=== PATIENT | female | born 1970 | race Two or more races ===

== ENCOUNTER 2018-01-15 08:03 | Day surgery (SDC) | payer OTHER ==
[~2018-01-15 08:03] MED LIST: INTESTINEX1 CA1 PO; PROTONIX40 MG PO; ULTRACET PO
== END 2018-01-15 11:55 | disposition home or self-care (01) ==
LOC: AMB-ENDOS 08:03
DX: K64.8 Other hemorrhoids (principal); Z85.038 Personal history of other malignant neoplasm of large intestine

== ENCOUNTER 2019-01-14 06:20 | Day surgery (SDC) | payer OTHER | END 2019-01-14 13:00 | disposition home or self-care (01) | LOC: AMB-ENDOS 06:20 | DX: K64.4 Residual hemorrhoidal skin tags (principal) ==

== ENCOUNTER 2020-11-02 08:28 | Day surgery (SDC) | payer OTHER | END 2020-11-02 12:54 | disposition home or self-care (01) | LOC: AMB-ENDOS 08:28 | PROVIDERS: ATTEND Surgery | DX: K62.89 Other specified diseases of anus and rectum (principal); K64.8 Other hemorrhoids; Z20.822 Contact with and (suspected) exposure to COVID-19 ==

== ENCOUNTER 2020-11-30 07:45 | Inpatient (IN) | payer OTHER ==
[~2020-11-30] VITALS: Ht 160 cm; Wt 59.0 kg
[2020-11-30] MEDS ORDERED: CRESTOR20 MG PO (08:31)
[2020-11-30] MEDS ORDERED: SYNTHROID112 MCG PO (08:31)
[2020-12-08] MEDS ORDERED: NEURONTIN600 M1 PO (14:53)
[2020-12-08] MEDS ORDERED: COLACE100 MG PO (14:53)
[2020-12-08] MEDS ORDERED: PERCOCET 5-3251 EACH PO (14:53)
== END 2020-12-08 15:14 | disposition home or self-care (01) | DRG 822 ==
LOC: O/R 12-06 05:38 → SURH 12-06 07:00
PROVIDERS: ADMIT Surgery; ATTEND Surgery
PROC: 07TP4ZZ Resection of Spleen, Percutaneous Endoscopic Approach (ICD-10-PCS; principal; 2020-12-06 07:00)
DX: C26.1 Malignant neoplasm of spleen (principal); E03.8 Other specified hypothyroidism; Z20.822 Contact with and (suspected) exposure to COVID-19; R59.0 Localized enlarged lymph nodes